=== PATIENT | female | born 1980 | race Hispanic/Latino ===

== ENCOUNTER → 2017-07-30 | Outpatient (CLI) | payer OTHER ==
--- NOTE | 2017-08-07 09:03 | Polysomnography ---
DATE OF STUDY: July 30, 2017 POLYSOMNOGRAM REPORT HOME SLEEP STUDY A monitored study was recommended, but was not approved by the patient's insurance. This is a followup study. Patient of Dr. Moncho Espitia. A 37-year-old, 67 inches tall, 229 pounds, body mass index 37. She was monitored during the home study with central and occipital EEG, electro-oculogram, submentalis EMG, EKG, nasal, and oral thermistor, pulse oximeter, anterior tibialis EMG, pulse oximeter, nasal and respiratory effort monitors. Sleep efficiency was 99.6%. Sleep latency only 0.5 minutes. REM sleep was not achieved. The apnea hypopnea index was 3.9 with 6 obstructive events and 23 hypopneas. The patient spent only 10% of the study supine, which makes paucity of events. Essentially normal sleep study. Occasional apneas and desaturations. This is an improvement over previous sleep study also performed as an outpatient using somewhat different monitors. Clinical suspicion is high. Once again, a monitored sleep study should be considered. Lack of REM sleep may also minimize the number of events noted. Once again, thank you for this kind referral. Job#: [id number] [place]
== END ==
LOC: SLEEP 20:23
PROVIDERS: ATTEND Internal Medicine Pulmonary Disease
DX: G47.33 Obstructive sleep apnea (adult) (pediatric) (principal)
CPT/HCPCS: 95806